=== PATIENT | female | born 1955 | race Caucasian/White ===

== ENCOUNTER → 2017-06-29 | Outpatient (CLI) | payer OTHER ==
--- NOTE | 2017-06-30 11:54 | MM ---
Reason for exam: screening (asymptomatic). Last mammogram was performed 1 year and 6 months ago. History: Patient is postmenopausal, history of other cancer, and is nulliparous. Family history of breast cancer in sister at age 65. Core biopsy of the right breast, May 07, 1998. Benign stereotactic core biopsy of the right breast, May 07, 1998. Physical Findings: A clinical breast exam by your physician is recommended on an annual basis and results should be correlated with mammographic findings. MG 3D Screening Mammo W/Cad Bilateral CC and MLO view(s) were taken. Prior study comparison: December 24, 2015, bilateral MG screening mammo w CAD. October 29, 2014, bilateral MG screening mammo w CAD. The breast tissue is heterogeneously dense. This may lower the sensitivity of mammography. Previous mammotome biopsy in the right breast. No significant changes when compared with prior studies. ASSESSMENT: Benign, BI-RAD 2 RECOMMENDATION: Routine screening mammogram of both breasts in 1 year.
== END | disposition home or self-care (01) ==
LOC: RADMAMWWP 08:55
PROVIDERS: ATTEND Family Medicine
DX: Z12.31 Encounter for screening mammogram for malignant neoplasm of breast (principal)
CPT/HCPCS: 77063; 77067

== ENCOUNTER → 2019-04-06 | Outpatient (CLI) | payer MEDICARE ==
--- NOTE | 2019-04-08 10:00 | MM ---
Reason for exam: screening (asymptomatic). Last mammogram was performed 1 year and 9 months ago. History: Patient is postmenopausal, history of other cancer, and is nulliparous. Family history of breast cancer in sister at age 65. Core biopsy of the right breast, May 07, 1998. Benign stereotactic core biopsy of the right breast, May 07, 1998. Took hormonal contraceptives for 6 months. Physical Findings: A clinical breast exam by your physician is recommended on an annual basis and results should be correlated with mammographic findings. MG 3D Screening Mammo W/Cad Bilateral CC and MLO view(s) were taken. Prior study comparison: June 29, 2017, bilateral MG 3d screening mammo w/cad. December 24, 2015, bilateral MG screening mammo w CAD. The breast tissue is heterogeneously dense. This may lower the sensitivity of mammography. There is no discrete abnormality. No significant changes when compared with prior studies. ASSESSMENT: Negative, BI-RAD 1 RECOMMENDATION: Routine screening mammogram of both breasts in 1 year.
== END | disposition home or self-care (01) ==
LOC: RADMAMWWP 09:17
PROVIDERS: ATTEND Family Medicine
DX: Z12.31 Encounter for screening mammogram for malignant neoplasm of breast (principal)
CPT/HCPCS: 77063; 77067

== ENCOUNTER 2020-06-14 10:27 | Emergency (ER) | payer MEDICARE ==
[2020-06-14 10:34] VITALS: RESP 16
[2020-06-14] MEDS ORDERED: SODIUM CHLORIDE 0.9% 1,000 ML IV ONE (10:46)
[2020-06-14] MEDS ORDERED: IBUPROFEN 600 MG TAB PO STA (10:46)
[2020-06-14] MEDS ORDERED: ACETAMINOPHEN TAB 500 MG TAB PO STA (10:46)
--- NOTE | 2020-06-14 10:49 | ED ---
General Adult HPI - General Chief complaint: Shortness of Breath Stated complaint: SOB,+COVID Time Seen by Provider: 06/14/20 10:30 Source: patient, EMS, RN notes reviewed, old records reviewed Mode of arrival: EMS Limitations: no limitations - History of Present Illness Initial comments: This is a 65-year-old female who presents emergency Department from [facility]. They diagnosed the patient with COVID today. Patient states her symptoms started Monday night and since then she's had diarrhea and also had some difficulty breathing with a cough that has been dry. Patient states she has not been eating much ever since Monday. Patient states every day she's had a fever and she feels very fatigued. Patient denies any headache patient denies numbness weakness. Patient denies any abdominal pain patient isn't chest pain patient denies any extremity swelling or calf tenderness. Patient had a CTA at the other facility and saw no PE. - Related Data Previous Rx's Medication Instructions Recorded Dexamethasone [Decadron] 6 mg PO DAILY #10 tablet 06/14/20 Allergies Allergy/AdvReac Type Severity Reaction Status Date / Time No Known Allergies Allergy Unverified 06/14/20 12:04 Review of Systems ROS Statement: Those systems with pertinent positive or pertinent negative responses have been documented in the HPI. ROS Other: All systems not noted in ROS Statement are negative. Past Medical History Past Medical History: No Reported History History of Any Multi-Drug Resistant Organisms: None Reported Past Surgical History: No Surgical Hx Reported Past Psychological History: No Psychological Hx Reported Smoking Status: Never smoker Past Alcohol Use History: Occasional Past Drug Use History: None Reported General Exam - General Exam Comments Initial Comments: GENERAL: Patient is well-developed and well-nourished. Patient is nontoxic and well- hydrated and is in mild distress. ENT: Neck is soft and supple. No significant lymphadenopathy is noted. Oropharynx is clear. Moist mucous membranes. Neck has full range of motion without eliciting any pain. EYES: The sclera were anicteric and conjunctiva were pink and moist. Extraocular movements were intact and pupils were equal round and reactive to light. Eyelids were unremarkable. PULMONARY: Unlabored respirations. Good breath sounds bilaterally. No audible rales rhonchi or wheezing was noted. CARDIOVASCULAR: There is a regular rate and rhythm without any murmurs gallops or rubs. ABDOMEN: Soft and nontender with normal bowel sounds. SKIN: Skin is clear with no lesions or rashes and otherwise unremarkable. NEUROLOGIC: Patient is alert and oriented x3. Cranial nerves II through XII are grossly intact. Motor and sensory are also intact. Normal speech, volume and content. Symmetrical smile. MUSCULOSKELETAL: Normal extremities with adequate strength and full range of motion. LYMPHATICS: No significant lymphadenopathy is noted PSYCHIATRIC: Normal psychiatric evaluation. Limitations: no limitations Course Vital Signs 06/14/20 06/14/20 06/14/20 10:28 10:37 11:26 Temperature 101.1 F H Pulse Rate 97 Respiratory 16 16 Rate Blood Pressure 145/88 O2 Sat by Pulse 98 94 L Oximetry 06/14/20 06/14/20 06/14/20 12:04 12:46 12:59 Temperature 98.7 F Pulse Rate 86 88 91 Respiratory 16 16 16 Rate Blood Pressure 136/86 114/72 109/72 O2 Sat by Pulse 96 94 L 95 Oximetry Medical Decision Making - Medical Decision Making EKG shows normal sinus rhythm at 90 bpm NC interval 140 QRS is 70 QT interval 358 QTC is 457. Patient received Motrin emergency department. Patient also received 1 L of normal saline. I reviewed the results from the patient's visit at [facility] CAT scan did show some scattered infiltrates. Patient was oxygenating at 95% at rest and upon walking continued to remain at 95%. I discussed the option of going home patient was opened as an option so I did give the patient monoclonal antibodies and waited for an hour after the infusion to make sure she had no reaction and the patient will be discharged home with steroids and she understands that if he has any worsening of symptoms to come back to the hospital. Disposition Clinical Impression: Pneumonia due to COVID-19 virus Disposition: HOME SELF-CARE Condition: Good Instructions (If sedation given, give patient instructions): Coronavirus Disease 2019 (COVID-19) Additional Instructions: Patient should return to the emergency department if any symptoms worsen or there are any new symptoms Prescriptions: Dexamethasone [Decadron] 6 mg PO DAILY #10 tablet Is patient prescribed a controlled substance at d/c from ED?: No Referrals: Mckayla Gordon MD [Primary Care Provider] - 1-2 days Time of Disposition: 13:30
[2020-06-14 12:05] VITALS: TEMP 98.7
[2020-06-14] MEDS ORDERED: BAMLANIVIMAB 700 MG in SODIUM CHLORIDE 0.9% 50 ML IVPB ONE (13:00)
[2020-06-14 14:00] VITALS: BP 137/84; PULSE 86
== END 2020-06-14 14:13 | disposition home or self-care (01) ==
LOC: EC 10:27
DX: U07.1 COVID-19 (principal); J12.82 Pneumonia due to coronavirus disease 2019
CPT/HCPCS: 99285; 96365; 96361; Q0239; 93005

== ENCOUNTER 2020-09-02 07:38 | Day surgery (SDC) | payer MEDICARE ==
[2020-08-31 10:44] VITALS: BMI 27.4
[~2020-09-02 07:38] MED LIST: LACTATED RINGERS 1,000 ML IV SCH; LIDOCAINE 1% (10MG/ML) FOR IV START INTRADERMA PRN
[2020-09-02 08:25] VITALS: TEMP 97.6
--- NOTE | 2020-09-02 09:07 | P.GSHP ---
History of Present Illness H&P Date: 09/02/20 CHIEF COMPLAINT: Colon screen HISTORY OF PRESENT ILLNESS: The patient is a 65-year-old female who presents for colon screen. Lower endoscopy was offered for further evaluation and management. PAST MEDICAL HISTORY: Please see list. PAST SURGICAL HISTORY: Please see list. MEDICATIONS: Please see list. ALLERGIES: Please see list. SOCIAL HISTORY: No illicit drug use FAMILY HISTORY: No reports of Crohn disease or ulcerative colitis. REVIEW OF ORGAN SYSTEMS: CONSTITUTIONAL: No reports of fevers or chills. PHYSICAL EXAM: VITAL SIGNS: Stable GENERAL: Well-developed pleasant in no acute distress. HEENT: No scleral icterus. Extraocular movements grossly intact. Moist buccal mucosa. NECK: Supple without lymphadenopathy. CHEST: Unlabored respirations. Equal bilateral excursions. CARDIOVASCULAR: Regular rate and rhythm. Distal 2+ pulses. ABDOMEN: Soft, nontender, nondistended. MUSCULOSKELETAL: No clubbing, cyanosis, or edema. ASSESSMENT: 1. Colon screen. PLAN: 1. Recommend proceeding with a lower endoscopy Past Medical History Past Medical History: Cancer Additional Past Medical History / Comment(s): SKIN CANCER History of Any Multi-Drug Resistant Organisms: None Reported Past Surgical History: No Surgical Hx Reported Additional Past Surgical History / Comment(s): LAPAROSCOPIC SURGERY , RIGHT RING FINGER, COLONOSCOPY Past Anesthesia/Blood Transfusion Reactions: No Reported Reaction Smoking Status: Former smoker - Past Family History Mother Family Medical History: Cancer Additional Family Medical History / Comment(s): COLON CANCER Sister(s) Family Medical History: Cancer Additional Family Medical History / Comment(s): COLON CANCER #2 SISTER- BREAST CANCER Medications and Allergies Home Medications Medication Instructions Recorded Confirmed Type Cholecalciferol [Vitamin D3 (25 50 mcg PO DAILY 08/31/20 09/02/20 History Mcg = 1000 Iu)] Escitalopram [Lexapro] 5 mg PO DAILY 08/31/20 09/02/20 History Zinc 50 mg PO DAILY 08/31/20 09/02/20 History Allergies Allergy/AdvReac Type Severity Reaction Status Date / Time No Known Allergies Allergy Unverified 09/02/20 08:26 Surgical - Exam Vital Signs Temp Pulse Resp BP Pulse Ox 97.6 F 110 H 18 158/86 97 09/02/20 08:23 09/02/20 08:23 09/02/20 08:23 09/02/20 08:23 09/02/20 08:23
[2020-09-02] MEDS ORDERED: PROPOFOL 10 MG/ML 20 ML VIAL IV ONE (09:14)
--- NOTE | 2020-09-02 09:38 | P.PCN ---
Date of Procedure: 09/02/20 Description of Procedure: PREOPERATIVE DIAGNOSIS: Personal history colon polyps Family history colon cancer mother and sister Colonoscopy screening, high risk POSTOPERATIVE DIAGNOSIS: Personal history colon polyps Family history colon cancer mother and sister Colonoscopy screening, high risk OPERATION: Colonoscopy to the cecum, ileocecal valve and appendiceal orifice. SURGEON: Zaria Dia MD. ANESTHESIA: MAC. INDICATIONS: The patient is a 65-year-old female who presents for colonoscopy screening. Last colonoscopy over 5 years ago. Benefits and risks were described and informed consent was obtained. DESCRIPTION OF PROCEDURE: The patient had undergone Sutab prep. The patient had been brought into the operating room and laid in the left lateral decubitus position. After adequate intravenous sedation, the rectum was examined with 2% lidocaine jelly. No external hemorrhoids were encountered. The rectal tone was within normal limits. No lesions were palpated in the rectal vault. An Olympus colonoscope was advanced until the cecum, ileocecal valve and appendiceal orifice were clearly viewed. The prep was excellent. No scattered diverticulosis was encountered. No colonic polyps were found. No evidence of focal colitis was found. Retroflexion of the scope demonstrated grade 1 internal hemorrhoids without active bleeding or inflammation. The colon was desufflated. The patient had tolerated the procedure well. Withdrawal time was over 6 minutes. FINDINGS: Aronchick preparation quality scale 1 (1-5) Internal hemorrhoids, grade 1 No external prolapsed hemorrhoids. No arteriovenous malformations. No adenomatous polyps. No focal colitis. RECOMMENDATIONS: Lower endoscopy in 3 years 2023 for high risk screening Plan - Discharge Summary Discharge Rx Participant: No New Discharge Prescriptions: Continue Zinc 50 mg PO DAILY Cholecalciferol [Vitamin D3 (25 Mcg = 1000 Iu)] 50 mcg PO DAILY Escitalopram [Lexapro] 5 mg PO DAILY Discharge Medication List Cholecalciferol [Vitamin D3 (25 Mcg = 1000 Iu)] 50 mcg PO DAILY 08/31/20 [History] Escitalopram [Lexapro] 5 mg PO DAILY 08/31/20 [History] Zinc 50 mg PO DAILY 08/31/20 [History] Follow up Appointment(s)/Referral(s): Zaria Dia MD [STAFF PHYSICIAN] - As Needed Patient Instructions/Handouts: *Surgery [facility] - (Anesthesia) Endoscopy Discharge Instructions, Colonoscopy (DC) Activity/Diet/Wound Care/Special Instructions: Repeat colonoscopy 3 years, 2023 Discharge Disposition: HOME SELF-CARE
[2020-09-02 09:58] VITALS: BP 148/77; PULSE 76; RESP 18
== END 2020-09-02 10:24 | disposition home or self-care (01) ==
LOC: ORWHC2ENDO 07:38
PROVIDERS: ATTEND Surgery Plastic and Reconstructive Surgery
DX: Z12.11 Encounter for screening for malignant neoplasm of colon (principal); K64.0 First degree hemorrhoids; F41.9 Anxiety disorder, unspecified; Z86.010 Personal history of colon polyps; Z80.0 Family history of malignant neoplasm of digestive organs; Z80.3 Family history of malignant neoplasm of breast; Z85.828 Personal history of other malignant neoplasm of skin; Z87.891 Personal history of nicotine dependence; Z79.899 Other long term (current) drug therapy
CPT/HCPCS: J2704; G0105

== ENCOUNTER → 2020-09-07 | Outpatient (CLI) | payer MEDICARE ==
--- NOTE | 2020-09-08 11:02 | MM ---
Reason for exam: screening (asymptomatic). Last mammogram was performed 1 year and 5 months ago. History: Patient is postmenopausal, history of other cancer, and is nulliparous. Family history of breast cancer in sister at age 65. Core biopsy of the right breast, May 07, 1998. Benign stereotactic core biopsy of the right breast, May 07, 1998. Took hormonal contraceptives for 6 months. Physical Findings: A clinical breast exam by your physician is recommended on an annual basis and results should be correlated with mammographic findings. MG 3D Screening Mammo W/Cad Bilateral CC and MLO view(s) were taken. Prior study comparison: April 06, 2019, bilateral MG 3d screening mammo w/cad. June 29, 2017, bilateral MG 3d screening mammo w/cad. The breast tissue is heterogeneously dense. This may lower the sensitivity of mammography. Previous mammotome biopsy in the right breast. There is no discrete abnormality. ASSESSMENT: Benign, BI-RAD 2 RECOMMENDATION: Routine screening mammogram of both breasts in 1 year.
== END | disposition home or self-care (01) ==
LOC: RADMAMWWP 15:30
PROVIDERS: ATTEND Family Medicine
DX: Z12.31 Encounter for screening mammogram for malignant neoplasm of breast (principal); Z78.0 Asymptomatic menopausal state; Z80.3 Family history of malignant neoplasm of breast
CPT/HCPCS: 77063; 77067

== ENCOUNTER → 2021-09-29 | Outpatient (CLI) | payer MEDICARE ==
--- NOTE | 2021-09-30 18:41 | MM ---
Reason for Exam: Screening (asymptomatic). Last mammogram was performed 1 year(s) and 1 month(s) ago. Patient History: Menarche at age 12. Patient has no children. Postmenopausal. Other cancer. Hormonal Contraceptives for 6 months. 05/07/1998, Benign Stereotactic Core Biopsy on the right side. 05/07/1998, Core Biopsy on the Right side. Sister had breast cancer, age 65. Risk Values: Donna 5 year model risk: 5.0%. NCI Lifetime model risk: 16.2%. Prior Study Comparison: 06/29/2017 Bilateral Screening Mammogram, [facility]. 04/06/2019 Bilateral Screening Mammogram, [facility]. 09/07/2020 Bilateral Screening Mammogram, [facility]. Tissue Density: The breast tissue is heterogeneously dense. This may lower the sensitivity of mammography. Findings: Analyzed By CAD. There is a focal asymmetric density upper-outer aspect left breast. This appears more focal unchanged from comparison. This may be summation density. Additional evaluation however is recommended. Overall Assessment: Incomplete: need additional imaging evaluation, BI-RAD 0 Management: Special View Mammogram of the left breast. A negative mammogram report should not preclude additional follow up of suspicious palpable abnormalities. Patient should continue monthly self breast exam. A clinical breast exam by your physician is recommended on an annual basis and results should be correlated with mammographic findings. Electronically signed and approved by: David Quesada D.O. Radiologis
== END | disposition home or self-care (01) ==
LOC: RADMAMWWP 09:03
PROVIDERS: ATTEND Family Medicine
DX: Z12.31 Encounter for screening mammogram for malignant neoplasm of breast (principal); Z78.0 Asymptomatic menopausal state; Z80.3 Family history of malignant neoplasm of breast
CPT/HCPCS: 77063; 77067

== ENCOUNTER → 2021-10-12 | Outpatient (CLI) | payer MEDICARE ==
--- NOTE | 2021-10-12 14:05 | MM ---
Reason for Exam: Additional evaluation requested from abnormal screening. Last screening mammogram was performed less than 1 month ago. Patient History: Menarche at age 12. Patient has no children. Postmenopausal. Other cancer. Hormonal Contraceptives for 6 months. 05/07/1998, Benign Stereotactic Core Biopsy on the right side. 05/07/1998, Core Biopsy on the Right side. Sister had breast cancer, age 65. Risk Values: Donna 5 year model risk: 5.0%. NCI Lifetime model risk: 16.2%. Prior Study Comparison: 04/06/2019 Bilateral Screening Mammogram, [facility]. 09/07/2020 Bilateral Screening Mammogram, [facility]. 09/29/2021 Bilateral MG 3D screening mammo w/cad, [facility]. Tissue Density: Left: The breast tissue is heterogeneously dense. This may lower the sensitivity of mammography. Findings: Analyzed By CAD. No persistent underlying mass or distortion. No stenosis or calcifications. Overall Assessment: Probably benign, BI-RAD 3 Management: Diagnostic Mammogram of the left breast in 6 months. A clinical breast exam by your physician is recommended on an annual basis and results should be correlated with mammographic findings. This exam should not preclude additional follow-up of suspicious palpable abnormalities. Results were given to the patient verbally at the time of exam. Electronically signed and approved by: Jose M Dumas M.D. Radiologis
== END | disposition home or self-care (01) ==
LOC: RADMAMWWP 13:32
PROVIDERS: ATTEND Family Medicine
DX: R92.8 Other abnormal and inconclusive findings on diagnostic imaging of breast (principal)
CPT/HCPCS: 77065; G0279; 77061

== ENCOUNTER → 2022-04-01 | Outpatient (CLI) | payer MEDICARE ==
--- NOTE | 2022-04-01 11:12 | MM ---
Reason for Exam: Follow-up at short interval from prior study. Last screening mammogram was performed 6 month(s) ago. Patient History: Menarche at age 12. Patient has no children. Postmenopausal. Hormonal Contraceptives for 6 months. 05/07/1998, Benign Stereotactic Core Biopsy on the right side. 05/07/1998, Core Biopsy on the Right side. Sister had breast cancer, age 65. Risk Values: Donna 5 year model risk: 5.0%. NCI Lifetime model risk: 15.5%. Prior Study Comparison: 09/07/2020 Bilateral Screening Mammogram, [facility]. 09/29/2021 Bilateral MG 3D screening mammo w/cad, [facility]. 10/12/2021 Left MG 3D work up w/cad , [facility]. Tissue Density: Left: The breast tissue is heterogeneously dense. This may lower the sensitivity of mammography. Findings: Analyzed By CAD. No suspicious mass or distortion in the left breast. Overall Assessment: Negative, BI-RAD 1 Management: Screening Mammogram of both breasts in 6 months. Back on schedule. Results were given to the patient verbally at the time of exam. Electronically signed and approved by: Zeb Ferrera M.D.
== END | disposition home or self-care (01) ==
LOC: RADMAMWWP 10:46
PROVIDERS: ATTEND Family Medicine
DX: R92.8 Other abnormal and inconclusive findings on diagnostic imaging of breast (principal); Z78.0 Asymptomatic menopausal state; Z80.3 Family history of malignant neoplasm of breast
CPT/HCPCS: 77065; G0279; 77061

== ENCOUNTER → 2022-09-30 | Outpatient (CLI) | payer MEDICARE ==
--- NOTE | 2022-10-03 08:40 | MM ---
Reason for Exam: Screening (asymptomatic). Last screening mammogram was performed 12 month(s) ago. Patient History: Menarche at age 12. Patient has no children. Postmenopausal. Hormonal Contraceptives for 6 months. 05/07/1998, Benign Stereotactic Core Biopsy on the right side. 05/07/1998, Core Biopsy on the Right side. Sister had breast cancer, age 65. Risk Values: Donna 5 year model risk: 5.0%. NCI Lifetime model risk: 15.5%. Prior Study Comparison: 09/29/2021 Bilateral MG 3D screening mammo w/cad, [facility]. 10/12/2021 Left MG 3D work up w/cad LT, [facility]. 04/01/2022 Left MG 3D diag mammo w/cad LT, [facility]. Tissue Density: There are scattered fibroglandular densities. Findings: Analyzed By CAD. There is no suspicious group of microcalcifications or new suspicious mass in either breast. Overall Assessment: Negative, BI-RAD 1 Management: Screening Mammogram of both breasts in 1 year. . Patient should continue monthly self-breast exams. A clinical breast exam by your physician is recommended on an annual basis. This exam should not preclude additional follow-up of suspicious palpable abnormalities. Note on Donna scores and lifetime risk: 1. A Donna score greater than 3% is considered moderate risk. If this is the case, consider specialist referral to assess eligibility for a risk reducing agent. 2. If overall lifetime risk for the development of breast cancer is 20% or higher, the patient may qualify for future screening with alternating mammogram and breast MRI. Electronically signed and approved by: Rajesh Cárdenas M.D. Radiologis
== END | disposition home or self-care (01) ==
LOC: RADMAMWWP 10:07
PROVIDERS: ATTEND Family Medicine
DX: Z12.31 Encounter for screening mammogram for malignant neoplasm of breast (principal); Z78.0 Asymptomatic menopausal state; Z80.3 Family history of malignant neoplasm of breast
CPT/HCPCS: 77063; 77067

== ENCOUNTER → 2023-04-13 | Outpatient (CLI) | payer MEDICARE ==
--- NOTE | 2023-04-13 15:21 | US ---
EXAMINATION TYPE: US axilla RT DATE OF EXAM: 04/13/2023 COMPARISON: NONE CLINICAL INDICATION: Female, 68 years old with history of N63.31 UNSPECIFIED LUMP IN AXILLARY TAIL OF THE RI; Patient states she feels a lump in her right axilla x couple weeks Supervisor Yard notes: Right axilla: no abnormality seen at this time (scan done with patient supine and standing-which is how she feels it best) IMPRESSION: Targeted scanning right axilla shows no discrete sonographic abnormality. This should be followed cli nically. If any persistent enlargement is encountered, the patient could be rescanned.
== END | disposition home or self-care (01) ==
LOC: RADUSWWP 09:32
PROVIDERS: ATTEND Family Medicine
DX: N63.31 Unspecified lump in axillary tail of the right breast (principal)

== ENCOUNTER → 2023-10-02 | Outpatient (CLI) | payer MEDICARE ==
--- NOTE | 2023-10-03 08:19 | MM ---
Reason for Exam: Screening (asymptomatic). Last screening mammogram was performed 12 month(s) ago. Patient History: Menarche at age 12. Patient has no children. Postmenopausal. Hormonal Contraceptives for 6 months. 05/07/1998, Benign Stereotactic Core Biopsy on the right side. 05/07/1998, Core Biopsy on the Right side. Sister had breast cancer, age 65. Risk Values: Donna 5 year model risk: 5.0%. NCI Lifetime model risk: 14.9%. Prior Study Comparison: 10/12/2021 Left MG 3D work up w/cad LT, [facility]. 04/01/2022 Left MG 3D diag mammo w/cad LT, [facility]. 09/30/2022 Bilateral MG 3D screening mammo w/cad, [facility]. Tissue Density: The breasts are heterogeneously dense, which may obscure small masses. Findings: Analyzed By CAD. There is no suspicious group of microcalcifications or new suspicious mass in either breast. Surgical clip in the right breast. Asymmetric tissue in the upper margin of the left breast stable from 2021 and 2018. Overall Assessment: Benign, BI-RAD 2 Management: Screening Mammogram of both breasts in 1 year. . Patient should continue monthly self-breast exams. A clinical breast exam by your physician is recommended on an annual basis. This exam should not preclude additional follow-up of suspicious palpable abnormalities. Note on Donna scores and lifetime risk: 1. A Donna score greater than 3% is considered moderate risk. If this is the case, consider specialist referral to assess eligibility for a risk reducing agent. 2. If overall lifetime risk for the development of breast cancer is 20% or higher, the patient may qualify for future screening with alternating mammogram and breast MRI. Electronically signed and approved by: Jose M Dumas M.D. Radiologis
== END | disposition home or self-care (01) ==
LOC: RADMAMWWP 14:04
PROVIDERS: ATTEND Family Medicine
DX: Z12.31 Encounter for screening mammogram for malignant neoplasm of breast (principal); Z80.3 Family history of malignant neoplasm of breast; Z78.0 Asymptomatic menopausal state
CPT/HCPCS: 77063; 77067

== ENCOUNTER → 2024-02-07 | Day surgery (SDC) | payer MEDICARE ==
[~2024-02-07] MED LIST changes: -LACTATED RINGERS 1,000 ML IV SCH; +LIDOCAINE 1% INJ 10MG/ML (20 ML MDV) ONE; +PROPOFOL 10 MG/ML 20 ML VIAL IV ONE
--- NOTE | 2024-02-07 08:56 | P.GSHP ---
History of Present Illness H&P Date: 02/07/24 CHIEF COMPLAINT: GERD and colon screen HISTORY OF PRESENT ILLNESS: The patient is a 69-year-old female who presents with gastroesophageal reflux disease and need for colon screen. Upper and lower endoscopy were offered for further evaluation and management. PAST MEDICAL HISTORY: Please see list. PAST SURGICAL HISTORY: Please see list. MEDICATIONS: Please see list. ALLERGIES: Please see list. SOCIAL HISTORY: No illicit drug use FAMILY HISTORY: No reports of Crohn disease or ulcerative colitis. REVIEW OF ORGAN SYSTEMS: CONSTITUTIONAL: No reports of fevers or chills. GI: Denies any blood in stools or constipation. PHYSICAL EXAM: VITAL SIGNS: Stable GENERAL: Well-developed pleasant in no acute distress. HEENT: No scleral icterus. Extraocular movements grossly intact. Moist buccal mucosa. NECK: Supple without lymphadenopathy. CHEST: Unlabored respirations. Equal bilateral excursions. CARDIOVASCULAR: Regular rate and rhythm. Distal 2+ pulses. ABDOMEN: Soft, nondistended. MUSCULOSKELETAL: No clubbing, cyanosis, or edema. ASSESSMENT: 1. Gastroesophageal reflux disease 2. Colon screen. PLAN: 1. Recommend proceeding with an upper and lower endoscopy Past Medical History Past Medical History: Cancer Additional Past Medical History / Comment(s): SKIN CANCER History of Any Multi-Drug Resistant Organisms: None Reported Past Surgical History: No Surgical Hx Reported Additional Past Surgical History / Comment(s): LAPAROSCOPIC SURGERY , RIGHT RING FINGER, COLONOSCOPY Past Anesthesia/Blood Transfusion Reactions: No Reported Reaction Smoking Status: Former smoker - Past Family History Mother Family Medical History: Cancer Additional Family Medical History / Comment(s): COLON CANCER Sister(s) Family Medical History: Cancer Additional Family Medical History / Comment(s): COLON CANCER #2 SISTER- BREAST CANCER Medications and Allergies Home Medications Medication Instructions Recorded Confirmed Type No Known Home Medications 02/02/24 02/02/24 History Allergies Allergy/AdvReac Type Severity Reaction Status Date / Time No Known Allergies Allergy Unverified 02/02/24 11:12
[2024-02-07] MEDS: IV FLUID CONTINUATION 1,000 ML IV ONE (10:49)
[2024-02-07 10:50] VITALS: TEMP 97.4
[2024-02-07] MEDS: LACTATED RINGERS 1,000 ML IV SCH (10:56)
--- NOTE | 2024-02-07 11:32 | P.PCN ---
Date of Procedure: 02/07/24 Description of Procedure: PREOPERATIVE DIAGNOSIS: Gastritis Generalized abdominal pain POSTOPERATIVE DIAGNOSIS: Acute gastric ulcer with bleeding Acute gastritis with bleeding Gastroesophageal reflux disease with erosive esophagitis Duodenal polyp OPERATION: Esophagogastroduodenoscopy with biopsies along esophagus, antrum and duodenum SURGEON: Zaria Dia MD ANESTHESIA: MAC. INDICATIONS: The patient is a 69-year-old female who presents with gastritis and generalized abdominal pain. Benefits and risks of the procedure were described. Informed consent was obtained. DESCRIPTION: The patient was brought into the endoscopy suite and laid in the left lateral decubitus position. An Olympus gastroscope was passed along the posterior oropharynx down to the distal esophagus where the squamocolumnar junction was encountered at 38 cm from the incisors. The stomach was entered and no bile reflux was found. Additional findings are listed below. Biopsies with cold forceps were obtained of the antrum. The first through third portion of the duodenum was examined. Retroflexion of the scope confirmed Hill grade 2 lower esophageal valve. The squamocolumnar junction demonstrated LA grade B erosive esophagitis. The stomach was desufflated. The patient tolerated the procedure well. FINDINGS: Squamocolumnar junction 38 cm from the incisors. Diaphragmatic hiatus at 38 cm. Hill grade 2 lower esophageal valve. LA grade C erosive esophagitis. Biopsies obtained of the duodenum. Acute gastric ulcers along proximal incisura, 3 mm with active bleeding Acute gastritis, antrum with minimal bleeding Duodenal polyp 3 mm first portion of duodenum RECOMMENDATIONS: Omeprazole 40 mg daily for 2 weeks Carafate 1 g twice daily for 2 weeks May benefit from repeat upper endoscopy Discontinue exposure to NSAIDs
[2024-02-07] MEDS: IV FLUID CONTINUATION 400 ML IV ONE (11:52)
--- NOTE | 2024-02-07 11:52 | P.PCN ---
Date of Procedure: 02/07/24 Description of Procedure: PREOPERATIVE DIAGNOSIS: Abnormal stool function Change in bowel habits POSTOPERATIVE DIAGNOSIS: Microscopic colitis OPERATION: Colonoscopy to the cecum, ileocecal valve and appendiceal orifice. Colonoscopy with random cold forceps biopsies for microscopic colitis SURGEON: Zaria Dia MD. ANESTHESIA: MAC. INDICATIONS: The patient is a 69-year-old female who presents with altered stools including change in bowel habits for over 4 months. Benefits and risks were described and informed consent was obtained. DESCRIPTION OF PROCEDURE: The patient had undergone Suprep. The patient had been brought into the operating room and laid in the left lateral decubitus position. After adequate intravenous sedation, the rectum was examined with 2% lidocaine jelly. No external hemorrhoids were encountered. The rectal tone was within normal limits. No lesions were palpated in the rectal vault. An Olympus colonoscope was advanced until the cecum, ileocecal valve and appendiceal orifice were clearly viewed. The prep was excellent. No scattered diverticulosis was encountered. No colonic polyps were found. Cold forceps biopsies randomly were obtained for microscopic colitis. Retroflexion of the scope demonstrated grade 1 internal hemorrhoids without active bleeding or inflammation. The colon was desufflated. The patient had tolerated the procedure well. Withdrawal time was over 6 minutes. FINDINGS: Aronchick preparation quality scale 1 (1-5) Internal hemorrhoids, grade 1 No external prolapsed hemorrhoids. No arteriovenous malformations. No adenomatous polyps. Cold forceps biopsies obtained for microscopic colitis RECOMMENDATIONS: Lower endoscopy as needed Plan - Discharge Summary Discharge Rx Participant: No New Discharge Prescriptions: New Sucralfate [Carafate] 1 gm PO BID #30 tablet Omeprazole [PriLOSEC] 40 mg PO DAILY #14 cap Discharge Medication List Omeprazole [PriLOSEC] 40 mg PO DAILY #14 cap 02/07/24 [Rx] Sucralfate [Carafate] 1 gm PO BID #30 tablet 02/07/24 [Rx] Follow up Appointment(s)/Referral(s): Zaria Dia MD [STAFF PHYSICIAN] - 02/20/24 11:30 am Patient Instructions/Handouts: Diet for Stomach Ulcers and Gastritis (ED), Colitis (ED), Microscopic Colitis (DC) Activity/Diet/Wound Care/Special Instructions: Repeat colonoscopy 5 years, 2028 Discharge Disposition: HOME SELF-CARE
[2024-02-07 11:53] VITALS: RESP 16
[2024-02-07 12:07] VITALS: BP 122/76; PULSE 81
[2024-02-08 01:04] LABS: Cryptosporidium Antigen Negative (Negative)
== END | disposition home or self-care (01) ==
LOC: ORWHC2ENDO 10:15
PROVIDERS: ATTEND Surgery Plastic and Reconstructive Surgery
CPT/HCPCS: 43239; 45380; 87045; 87046; 87328; 87329; 88305; 88313

== ENCOUNTER → 2024-11-12 | Outpatient (CLI) | payer MEDICARE ==
--- NOTE | 2024-11-12 12:02 | MM ---
Reason for Exam: Screening (asymptomatic). Last mammogram was performed 1 year(s) and 1 month(s) ago. Patient History: Menarche at age 12. Patient has no children. Postmenopausal. Hormonal Contraceptives for 6 months. 05/07/1998, Benign Stereotactic Core Biopsy on the right side. 05/07/1998, Core Biopsy on the Right side. Sister had breast cancer, age 65. Risk Values: Donna 5 year model risk: 5.1%. NCI Lifetime model risk: 14.2%. Prior Study Comparison: 06/29/2017 Bilateral Screening Mammogram, [facility]. 04/06/2019 Bilateral Screening Mammogram, [facility]. 09/07/2020 Bilateral Screening Mammogram, [facility]. 09/29/2021 Bilateral MG 3D screening mammo w/cad, [facility]. 10/12/2021 Left MG 3D work up w/cad LT, [facility]. 04/01/2022 Left MG 3D diag mammo w/cad LT, [facility]. 09/30/2022 Bilateral MG 3D screening mammo w/cad, [facility]. 10/02/2023 Bilateral MG 3D screening mammo w/cad, [facility]. Tissue Density: The breasts are heterogeneously dense, which may obscure small masses. Findings: Analyzed By CAD. Right breast biopsy clip. Right breast: There is no suspicious group of microcalcifications or new suspicious mass. Left breast: There is no suspicious group of microcalcifications or new suspicious mass. Overall Assessment: Benign, BI-RAD 2 Management: Screening Mammogram of both breasts in [address] [facility] will attempt to contact patient to return for supplemental views and ultrasound if indicated. Patient should continue monthly self-breast exams. A clinical breast exam by your physician is recommended on an annual basis. This exam should not preclude additional follow-up of suspicious palpable abnormalities. Note on Donna scores and lifetime risk: 1. A Donna score greater than 3% is considered moderate risk. If this is the case, consider specialist referral to assess eligibility for a risk reducing agent. 2. If overall lifetime risk for the development of breast cancer is 20% or higher, the patient may qualify for future screening with alternating mammogram and breast MRI. [facility], , 11/12/2024 11:59 AM. Electronically signed and approved by: Matt Gardner DO
== END | disposition home or self-care (01) ==
LOC: RADMAMWWP 10:52
PROVIDERS: ATTEND Family Medicine
DX: Z12.31 Encounter for screening mammogram for malignant neoplasm of breast (principal); R92.333 Mammographic heterogeneous density, bilateral breasts; Z78.0 Asymptomatic menopausal state; Z80.3 Family history of malignant neoplasm of breast; Z92.0 Personal history of contraception
CPT/HCPCS: 77063; 77067